=== PATIENT | female | born 1980 ===

== ENCOUNTER 2018-05-24 16:57 | Emergency (ER) | payer BC, OTHER ==
[2018-05-24 17:02] VITALS: RESP 20; TEMP 97.9; O2SAT 98
--- NOTE | 2018-05-24 18:08 | ED PDOC ---
HPI: Back Time Seen by Provider: 05/24/18 17:19 Chief Complaint (Nursing): Back Pain Chief Complaint (Provider): Right Flank Pain History Per: Patient History/Exam Limitations: no limitations Onset/Duration Of Symptoms: Days (x2 weeks) Current Symptoms Are (Timing): Still Present Additional Complaint(s): 37 year old female with pmhx of hyperlipidemia and a fatty liver presents to the ED for evaluation of right sided flank pain associated with dysuria and urinary frequency for the past two weeks. Otherwise denies fever, chills, nausea, vomiting, abdominal pain, and vaginal bleeding / discharge. PMD: none provided Past Medical History Reviewed: Historical Data, Nursing Documentation, Vital Signs Vital Signs: Last Vital Signs Temp 97.9 F 05/24/18 17:00 Pulse 72 05/24/18 17:00 Resp 20 05/24/18 17:00 BP Pulse Ox 98 05/24/18 17:00 - Medical History PMH: Hyperlipidemia Other PMH: fatty liver - Surgical History Surgical History: No Surg Hx - Family History Family History: States: Hypertension Denies: Stroke, [place], CAD, Diabetes - Home Medications Home Medications: Ambulatory Orders Medication Instructions Recorded Sulfamethoxazole/Trimethoprim 1 tab PO BID 3 Days tab 05/24/18 [Bactrim DS 800 mg-160 mg] - Allergies Allergies/Adverse Reactions: Allergies Allergy/AdvReac Type Severity Reaction Status Date / Time No Known Allergies Allergy Verified 05/24/18 17:00 Review of Systems ROS Statement: Except As Marked, All Systems Reviewed And Found Negative Constitutional: Negative for: Fever, Chills Gastrointestinal: Negative for: Nausea, Vomiting, Abdominal Pain Genitourinary Female: Positive for: Dysuria, Frequency. Negative for: Vaginal Discharge, Vaginal Bleeding Musculoskeletal: Positive for: Back Pain (right flank) Physical Exam - Reviewed Nursing Documentation Reviewed: Yes Vital Signs Reviewed: Yes - Physical Exam Appears: Positive for: No Acute Distress Cardiovascular/Chest: Positive for: Regular Rate, Rhythm Respiratory: Positive for: Normal Breath Sounds. Negative for: Respiratory Distress Gastrointestinal/Abdominal: Positive for: Normal Exam, Soft. Negative for: Tenderness Back: Positive for: R CVA Tenderness (positive tenderness to palpation of right flank). Negative for: L CVA Tenderness Neurologic/Psych: Positive for: Alert, Oriented (x3) - ECG O2 Sat by Pulse Oximetry: 98 (RA) Pulse Ox Interpretation: Normal Medical Decision Making Medical Decision Making: Time: 1755 Initial Impression: r/o UTI Initial Plan: --CMP --U-preg --CBC with differential --Urine culture --Urinalysis Scribe Attestation: Documented by Farheen Bridges, acting as a scribe for Farzana Henderson PA-C. Provider Scribe Attestation: All medical record entries made by the Scribe were at my direction and personally dictated by me. I have reviewed the chart and agree that the record accurately reflects my personal performance of the history, physical exam, medical decision making, and the department course for this patient. I have also personally directed, reviewed, and agree with the discharge instructions and disposition. Disposition - Clinical Impression Clinical Impression: Urinary tract infection - Disposition Referrals: Deepa Burns MD [Family Provider] - Disposition Time: 20:12 Condition: STABLE Additional Instructions: Return to ER if you develop a fever or symptoms worsen despite antibiotics. Complete full course of antibiotics as prescribed. Prescriptions: Sulfamethoxazole/Trimethoprim [Bactrim DS 800 mg-160 mg] 1 tab PO BID 3 Days tab Instructions: Urinary Tract Infection, Adult (DC) Forms: [place] ([place]) Print Language: CITIZ[place]
[2018-05-24 18:31] VITALS: BP 117/66; PULSE 68
[2018-05-24] MEDS ORDERED: Tmp-Smz 800 mg-160 mg DS Tab PO STA (19:23)
[2018-05-24 19:37] LABS: SQUAMOUS EPITHIAL 24 /hpf (0-5); URINE BACTERIA OCC (<OCC); URINE BILIRUBIN NEGATIVE (NEGATIVE); URINE BLOOD NEGATIVE (NEGATIVE); URINE CLARITY CLOUDY (Clear); URINE COLOR YELLOW (YELLOW); URINE GLUCOSE (UA) NEG (NEGATIVE); URINE LEUKOCYTE ESTERASE MOD Leu/uL (Negative); URINE PROTEIN NEGATIVE (NEGATIVE); URINE UROBILINOGEN 0.2-1.0 mg/dL (0.2-1.0)
[2018-05-24] MEDS ORDERED: Tmp-Smz 800 mg-160 mg DS Tab ONE (20:07)
== END 2018-05-24 20:36 | disposition home or self-care (01) ==
LOC: H.ER 16:57
DX: N39.0 Urinary tract infection, site not specified (principal)